=== PATIENT | male | born 1985 | race Caucasian/White ===

== ENCOUNTER 2017-09-07 10:42 | Emergency (ER) | payer SELFPAY ==
[2017-09-07 10:52] VITALS: BP 126/79
[2017-09-07] MEDS ORDERED: Dexamethasone TAB* 4 MG PO ONE (11:05)
[2017-09-07] MEDS ORDERED: Amoxicillin/Clavulanate TAB* 875 MG PO ONE (11:06)
--- NOTE | 2017-09-07 11:54 | UC ---
Throat Pain/Nasal Awais HPI - HPI Summary HPI Summary: A 32 y/o male [place] [facility] [place] pain onset 6 days ago after swallowing water while swimming. Sx worsened 2 days ago. Associated sx: difficulty swallowing and talking, swollen tonsils, fever, fatigue. Denies dyspnea. This is SooYoung obed Gonzalez, documenting for attending, Dr. Bruno Roland MD. - History of Current Complaint Chief Complaint: UCRespiratory Stated Complaint: NECK SWELLING Time Seen by Provider: 09/07/17 10:52 Hx Obtained From: Patient Onset/Duration: Gradual Onset, Lasting Days - 6 days, Still Present, Worse Since - 2 days ago Severity: Moderate Pain Intensity: 6 Pain Scale Used: 0-10 Numeric Associated Signs & Symptoms: Positive: Dysphagia, Fever, Other - Neg: Dyspnea; Positive: fatigue - Allergies/Home Medications Allergies/Adverse Reactions: Allergies Allergy/AdvReac Type Severity Reaction Status Date / Time No Known Allergies Allergy Verified 09/07/17 10:52 PMH/Surg Hx/FS Hx/Imm Hx Previously Healthy: Yes Endocrine History: Other Other Endocrine History: Neg: DM Cardiovascular History: Other Other Cardiovascular History: Neg: Cardiac disease ,HTN Other Respiratory History: Neg: COPD GI/ History: Other Other GI/ History: Neg: Ulcer - Surgical History Surgical History: Yes Surgery Procedure, Year, and Place: Hernia Repair age 8 - Family History Known Family History: Negative: Hypertension - Social History Occupation: Employed Full-time - Other Lives: With Family Alcohol Use: Occasionally Substance Use Type: None Smoking Status (MU): Never Smoked Tobacco - Immunization History Most Recent Influenza Vaccination: never Most Recent Tetanus Shot: 10/17/2015 Most Recent Pneumonia Vaccination: never Review of Systems Constitutional: Fever, Fatigue ENT: Sore Throat, Other - Pos: Swollen tonsils, dysphagia Respiratory: Other - Neg: Dyspnea All Other Systems Reviewed And Are Negative: Yes Physical Exam - Summary Physical Exam Summary: General: well-appearing, no pain distress Skin: warm, color reflects adequate perfusion, dry Head: normal Eyes: EOMI, SOREN ENT: Ears are normal with some ear wax present , uvula is midline, No evidence of peritonsillar abscess Bilateral tonsil swelling, L worse than R; L tonsil is erythematous Neck: supple, nontender Respiratory: CTA, breath sounds present Cardiovascular: RRR Abdomen: soft, nontender Bowel: present Musculoskeletal: normal, strength/ROM intact Neurological: sensory/motor intact, A&O x3 Psychological: affect/mood appropriate Triage Information Reviewed: Yes Vital Signs: Initial Vital Signs Temp 100.6 F 09/07/17 10:50 Pulse 93 09/07/17 10:50 Resp 18 09/07/17 10:50 BP 126/79 09/07/17 10:50 Pulse Ox 98 09/07/17 10:50 Vital Signs Reviewed: Yes Throat Pain/Nasal Course/Dx - Course Course Of Treatment: BP noted and advised to follow up with PCP. Medications reviewed. Allergies noted. UVULA MID LINE. NO PERITONSILAR ABSCESS ON EXAM. DISCUSSED RECHECK WITH ENT OR ED IF WORSENING. - Differential Dx/Diagnosis Provider Diagnoses: TONSILLITIS Discharge - Sign-Out/Discharge Documenting (check all that apply): Patient Departure - Discharge Plan Condition: Stable Disposition: HOME Prescriptions: Amoxicillin/Clavulanate TAB* [Augmentin TAB 875*] 875 mg PO BID #19 tab Patient Education Materials: Tonsillitis (ED) Referrals: [facility] [Provider Group] [facility] [place] [facility] REFERR[facility] [Outside] Bob Munoz MD [Medical Doctor] - Additional Instructions: FOLLOW UP WITH ENT IF NOT IMPROVED. GO TO THE EMERGENCY DEPARTMENT FOR ANY WORSENING OF YOUR CONDITION; DIFFICULTY BREATHING OR CONTINUED OR WORSENING DIFFICULTY WITH SWALLOWING OR QUESTIONS OR CONCERNS. - Billing Disposition and Condition Condition: STABLE Disposition: Home
== END 2017-09-07 11:17 | disposition home or self-care (01) ==
LOC: UCEAST 10:42
DX: J03.90 Acute tonsillitis, unspecified (principal)
CPT/HCPCS: 99212; A9270-GY; G0463; J8540

== ENCOUNTER 2019-03-06 13:38 | Emergency (ER) | payer MEDICAID, OTHER ==
[2019-03-06 14:06] VITALS: BP 128/78
--- NOTE | 2019-03-06 14:34 | UC ---
Lower Extremity/Ankle HPI - HPI Summary HPI Summary: 33yo male presenting with mother in law for L ankle pain after he "tripped, rolled his ankle, and heard a pop" last night around 8pm while putting the chickens away. Patient states pain is about the same /10. Denies radiating pain. States he can bear weight but has been ambulating with help of walking stick. Notes lateral swelling. Denies bruising. Denies decreased ROM. - History of Current Complaint Chief Complaint: UCLowerExtremity Stated Complaint: ANKLE INJURY Hx Obtained From: Patient Pain Intensity: 1 Pain Scale Used: 0-10 Numeric - Allergies/Home Medications Allergies/Adverse Reactions: Allergies Allergy/AdvReac Type Severity Reaction Status Date / Time No Known Allergies Allergy Verified 09/07/17 10:52 Home Medications: Home Medications NK [No Home Medications Reported] 03/06/19 [History Confirmed 03/06/19] PMH/Surg Hx/FS Hx/Imm Hx Previously Healthy: Yes - Surgical History Surgical History: Yes Surgery Procedure, Year, and Place: Hernia Repair age 8 - Family History Known Family History: Positive: Non-Contributory Negative: Hypertension - Social History Alcohol Use: Occasionally Substance Use Type: None Smoking Status (MU): Former Smoker - Immunization History Most Recent Influenza Vaccination: never Most Recent Tetanus Shot: 10/17/2015 Most Recent Pneumonia Vaccination: never Review of Systems All Other Systems Reviewed And Are Negative: No Constitutional: Positive: Negative Skin: Positive: Negative Respiratory: Positive: Negative Cardiovascular: Positive: Negative Gastrointestinal: Positive: Negative Musculoskeletal: Positive: Arthralgia - L lateral ankle, Edema - L lateral ankle. Negative: Decreased ROM Neurological: Negative: Paresthesia, Numbness Physical Exam Triage Information Reviewed: Yes Appearance: Well-Appearing, No Pain Distress, Well-Nourished Vital Signs: Initial Vital Signs Temp 98.6 F 03/06/19 14:03 Pulse 73 03/06/19 14:03 Resp 16 03/06/19 14:03 BP 128/78 03/06/19 14:03 Pulse Ox 97 03/06/19 14:03 Vital Signs Reviewed: Yes Eyes: Positive: Conjunctiva Clear ENT: Positive: Hearing grossly normal Neck: Positive: Supple Respiratory: Positive: No respiratory distress Cardiovascular: Positive: Pulses Normal - strong pedal pulses, Brisk Capillary Refill Musculoskeletal: Positive: Strength Intact, ROM Intact, Edema @ - minimal lateral edema of L ankle, Other: - minimal tenderness to palpation of anterolateral L ankle. no tenderness of lateral mallelus Neurological Exam: Other - sensation grossly intact Neurological: Positive: Alert Psychological: Positive: Age Appropriate Behavior Skin Exam: Normal - no erythema or ecchymosis Diagnostics - Radiology L ankle Radiology Interpretation Completed By: Radiologist Summary of Radiographic Findings: IMPRESSION: Lateral soft tissue swelling with no fracture or traumatic malalignment identified. Lower Extremity Course/Dx - Course Course Of Treatment: Discussed negative radiograph read with patient. Instructed to continue with RICE and provided with ankle splint. Instructed patient to follow up with pcp or sports med if pain persists. Patient voiced understanding and agreed with treatment plan. - Differential Dx/Diagnosis Provider Diagnosis: Left ankle sprain Discharge ED - Sign-Out/Discharge Documenting (check all that apply): Patient Departure All imaging exams completed and their final reports reviewed: Yes - Discharge Plan Condition: Stable Disposition: HOME Patient Education Materials: Ankle Sprain (ED) Forms: *Work Release Referrals: [facility] [Outside] - If Needed Leigh Carranza DO [Primary Care Provider] - If Needed Additional Instructions: As discussed, the xrays of your ankle did not show any abnormalities. Rest, ice, elevate, and use the ankle splint to help alleviate pain and swelling. You may also take over the counter pain medications as directed. Follow up with your primary care provider or sports medicine listed below if pain persists. - Billing Disposition and Condition Condition: STABLE Disposition: Home - Attestation Statements Provider Attestation: I was available for consult. This patient was seen by the KRISTI. The patient was not presented to, seen by, or examined by me. -Betty
== END 2019-03-06 15:25 | disposition home or self-care (01) ==
LOC: UCEAST 13:38
DX: S93.402A Sprain of unspecified ligament of left ankle, initial encounter (principal); M79.89 Other specified soft tissue disorders; Z87.891 Personal history of nicotine dependence; W18.40XA Slipping, tripping and stumbling without falling, unspecified, initial encounter; X50.0XXA Overexertion from strenuous movement or load, initial encounter; Y92.9 Unspecified place or not applicable
CPT/HCPCS: 99212; G0463